=== PATIENT | male | born 1945 | race Two or more races ===

== ENCOUNTER 2018-08-18 06:36 | Day surgery (SDC) | payer OTHER ==
[~2018-08-18 06:36] MED LIST: ALTACE2.5 MG PO; COZAAR50 MG PO; CRESTOR40 MG PO; PLAVIX75 MG PO; TOPROL XL100 M1 PO; ZETIA10 MG PO
[2018-08-18] MEDS ORDERED: NEURONTIN300 MG PO (10:21)
[2018-08-18] MEDS ORDERED: TYLENOL EXTRA500 MG PO (10:21)
[2018-08-18] MEDS ORDERED: ZOFRAN ODT4 MG PO (10:21)
[2018-08-18] MEDS ORDERED: MIRALAX17 GM PO (10:21)
[2018-08-18] MEDS ORDERED: ULTRAM50 MG PO (10:21)
== END 2018-08-18 14:55 | disposition home or self-care (01) ==
LOC: CIR.AMB 06:36
DX: K40.90 Unilateral inguinal hernia, without obstruction or gangrene, not specified as recurrent (principal)